=== PATIENT | female | born 1980 | race Caucasian/White ===

== ENCOUNTER 2021-11-11 21:45 | Emergency (ER) | payer OTHER ==
--- NOTE | 2021-11-11 21:56 | ERPHSYRPT ---
- History of Present Illness Time Seen by Provider: 11/11/21 21:54 Exam Limitations: no limitations Physician History: The patient is a 41-year-old female presents with a chief complaint of right flank pain. Onset reported was this morning. Her pain is described as a sharp pain that radiates to her right lower quadrant and is constant and moderate in severity. The pain is also associated with nausea but she denies vomiting. She also denies fever chills. She endorsed having diarrhea that started today as well in which she has had a total of 6 episodes of diarrhea was described as watery with no blood. She denies any recent sick contacts or any recent travel outside of the country as well as recent antibiotic use. She does not take anything for her symptoms prior to arrival. She denies any symptoms consistent with a UTI as well as vaginal bleeding or vaginal discharge. She denies history of kidney stones. Associated Symptoms: nausea, abdominal pain, other (Flank pain), No vomiting Allergies/Adverse Reactions: No Known Drug Allergies Allergy (Verified 11/11/21 22:06) Hx Tetanus, Diphtheria Vaccination/Date Given: No Hx Influenza Vaccination/Date Given: No Hx Pneumococcal Vaccination/Date Given: No - Review of Systems Constitutional: No No Symptoms, No Fever, No Chills Eyes: No Symptoms Ears, Nose, & Throat: No Symptoms Respiratory: No Symptoms Abdominal/Gastrointestinal: Abdominal Pain, Nausea, Diarrhea, No Vomiting, No Hematemesis, No Hematochezia Genitourinary Symptoms: No Symptoms, Other (Right flank pain), No Dysuria, No Frequency, No Hematuria, No Urgency, No Vaginal Bleeding, No Vaginal Discharge Musculoskeletal: No Symptoms Skin: No Symptoms Neurological: No Symptoms Psychological: No Symptoms Endocrine: No Symptoms Hematologic/Lymphatic: No Symptoms Immunological/Allergic: No Symptoms All Other Systems: Reviewed and Negative - Past Medical History Pertinent Past Medical History: Yes Neurological History: Other ENT History: No Pertinent History Cardiac History: No Pertinent History Respiratory History: Other Endocrine Medical History: No Pertinent History Musculoskeletal History: Degenerative Disk Disease GI Medical History: No Pertinent History History: No Pertinent History Psycho-Social History: No Pertinent History Female Reproductive Disorders: No Pertinent History Other Medical History: sciatic pain since , anxiety - Past Surgical History Past Surgical History: Yes Gastrointestinal: Cholecystectomy Female Surgical History: Tubal Ligation - Social History Smoking Status: Never smoker Exposure to second hand smoke: Yes Drug Use: none Patient Lives Alone: No - Nursing Vital Signs Nursing Vital Signs: Initial Vital Signs Temperature 97.6 F 11/11/21 21:58 Pulse Rate 79 11/11/21 21:58 Respiratory Rate 18 11/11/21 21:58 Blood Pressure 157/88 11/11/21 21:58 O2 Sat by Pulse Oximetry 97 11/11/21 21:58 Pain Scale Pain Intensity 7 - Physical Exam General Appearance: no apparent distress, mild distress, alert Eye Exam: No scleral icterus, No EOM palsy/anisocoria Ears, Nose, Throat Exam: normal ENT inspection Neck Exam: normal inspection Respiratory Exam: normal breath sounds, lungs clear, airway intact, No chest tenderness, No respiratory distress Cardiovascular Exam: regular rate/rhythm, normal heart sounds, normal peripheral pulses, capillary refill <2 sec, No murmur, No friction rub, No gallop, No edema Gastrointestinal/Abdomen Exam: soft, tenderness (Mild right lower quadrant tenderness with no rebound tenderness or guarding.), No pulsatile mass, No rebound Pelvic Exam: not done, deferred Rectal Exam: deferred Back Exam: normal inspection, No CVA tenderness, No vertebral tenderness Extremity Exam: normal inspection Neurologic Exam: alert, oriented x 3, cooperative Skin Exam: normal color, warm, dry, No rash, No petechiae, No jaundice SpO2 Interpretation: normal O2 Delivery: Room Air - Course Nursing assessment & vital signs reviewed: Yes - CT Exams Abdomen/Pelvis CT Interpretation: Tele-radiologist Report, Other (CT abdomen pelvis shows 3.6 mm distal right ureteral stone with trace right hydronephrosis.) Ordered Tests: Active Orders 24 hr Category Date Time Status IV Insertion STAT Care 11/11/21 21:55 Completed ABDOMEN AND PELVIS W/0 CONTRAS [CT] Stat Exams 11/11/21 22:18 Taken BMP Stat Lab 11/11/21 22:29 Completed CBC W DIFF Stat Lab 11/11/21 22:29 Completed HCG,QUALITATIVE URINE Stat Lab 11/11/21 22:20 Completed UA W/RFX UR CULTURE Stat Lab 11/11/21 22:20 Completed Medication Summary Discontinued Medications Generic Name Dose Route Start Last Admin Trade Name Freq PRN Reason Stop Dose Admin Hydrocodone Bitart/Acetaminophen 2 tab 11/11/21 23:04 11/11/21 23:15 Hydrocodone/Apap 5/325 Mg Tablet PO 11/11/21 23:05 2 tab STAT ONE Administration Hydrocodone Bitart/Acetaminophen Confirm 11/11/21 23:14 Hydrocodone/Apap 5/325 Mg Tablet Administered 11/11/21 23:15 Dose 2 tab .ROUTE .STK-MED ONE Hydrocodone Bitart/Acetaminophen Confirm 11/11/21 23:45 Hydrocodone/Apap 5/325 Mg Tablet Administered 11/11/21 23:46 Dose 2 tab .ROUTE .STK-MED ONE Hydrocodone Bitart/Acetaminophen 2 tab 11/11/21 23:47 11/11/21 23:48 Hydrocodone/Apap 5/325 Mg Tablet PO 11/11/21 23:48 2 tab STAT ONE Administration Hydromorphone HCl 0.5 mg 11/11/21 23:03 11/11/21 23:15 Hydromorphone 1 Mg/1ml Inj 1 Mg/Ml Syringe IV 11/11/21 23:04 0.5 mg STAT ONE Administration Hydromorphone HCl Confirm 11/11/21 23:14 Hydromorphone 1 Mg/1ml Inj 1 Mg/Ml Syringe Administered 11/11/21 23:15 Dose 1 mg .ROUTE .STK-MED ONE Hydromorphone HCl Confirm 11/11/21 23:46 Hydromorphone 1 Mg/1ml Inj 1 Mg/Ml Syringe Administered 11/11/21 23:47 Dose 1 mg .ROUTE .STK-MED ONE Hydromorphone HCl 0.5 mg 11/11/21 23:47 11/11/21 23:48 Hydromorphone 1 Mg/1ml Inj 1 Mg/Ml Syringe IV 11/11/21 23:48 0.5 mg STAT ONE Administration Sodium Chloride 1,000 mls @ 999 mls/hr 11/11/21 22:18 11/11/21 23:25 Sodium Chloride 0.9% 1000 Ml IV 11/11/21 23:18 Infused .Q1H1M STA Infusion Sodium Chloride Confirm 11/11/21 22:20 Sodium Chloride 0.9% 1000 Ml Administered 11/11/21 22:21 Dose 1,000 mls @ ud .ROUTE .STK-MED ONE Ketorolac Tromethamine 15 mg 11/11/21 22:17 11/11/21 22:22 Ketorolac Tromethamine 30 Mg/Ml Inj IV 11/11/21 22:18 15 mg STAT ONE Administration Ketorolac Tromethamine Confirm 11/11/21 22:20 Ketorolac Tromethamine 30 Mg/Ml Inj Administered 11/11/21 22:21 Dose 30 mg .ROUTE .STK-MED ONE Ondansetron HCl 4 mg 11/11/21 22:17 11/11/21 22:21 Ondansetron Hcl 4 Mg/2 Ml Vial IV 11/11/21 22:18 4 mg STAT ONE Administration Ondansetron HCl Confirm 11/11/21 22:20 Ondansetron Hcl 4 Mg/2 Ml Vial Administered 11/11/21 22:21 Dose 4 mg .ROUTE .STK-MED ONE Lab/Rad Data: Laboratory Result Diagrams 11/11/21 22:29 11/11/21 22:29 Laboratory Results 11/11/21 11/11/21 11/11/21 Range/Units 22:29 22:29 22:20 WBC 10.6 H (4.0-10.5) K/mm3 RBC 4.41 (4.1-5.4) M/mm3 Hgb 14.0 (12.0-16.0) gm/dl Hct 40.3 (35-47) % MCV 91.4 (78-100) fl MCH 31.7 (26-32) pg MCHC 34.7 (32-36) g/dl RDW 12.9 (11.5-14.0) % Plt Count 274 (150-450) K/mm3 MPV 9.5 (7.5-11.0) fl Gran % 61.6 (36.0-66.0) % Eos # (Auto) 0.22 (0-0.5) Absolute Lymphs (auto) 2.95 (1.0-4.6) Absolute Monos (auto) 0.86 (0.0-1.3) Lymphocytes % 27.9 (24.0-44.0) % Monocytes % 8.1 (0.0-12.0) % Eosinophils % 2.1 (0.00-5.0) % Basophils % 0.3 (0.0-0.4) % Absolute Granulocytes 6.52 (1.4-6.9) Basophils # 0.03 (0-0.4) Sodium 139 (137-145) mmol/L Potassium 3.8 (3.5-5.1) mmol/L Chloride 105 (98-107) mmol/L Carbon Dioxide 25 (22-30) mmol/L Anion Gap 12.9 (5-15) MEQ/L BUN 14 (7-17) mg/dL Creatinine 0.93 (0.52-1.04) mg/dL Estimated GFR > 60.0 ML/MIN Glucose 110 H (74-106) mg/dL Calcium 9.5 (8.4-10.2) mg/dL Urine Color (YELLOW) Urine Appearance (CLEAR) Urine pH (5-6) Ur Specific [place] (1.005-1.025) Urine Protein (Negative) Urine Ketones (NEGATIVE) Urine Blood (0-5) Luiz/ul Urine Nitrite (NEGATIVE) Urine Bilirubin (NEGATIVE) Urine Urobilinogen (0-1) mg/dL Ur Leukocyte Esterase (NEGATIVE) Urine WBC (Auto) (0-5) /HPF Urine RBC (Auto) (0-2) /HPF U Epithel Cells (Auto) (FEW) /HPF Urine Bacteria (Auto) (NEGATIVE) /HPF Urine Culture Reflexed (NO) Urine Glucose (NEGATIVE) mg/dL Urine HCG, Qual NEGATIVE (Negative) 11/11/21 Range/Units 22:20 WBC (4.0-10.5) K/mm3 RBC (4.1-5.4) M/mm3 Hgb (12.0-16.0) gm/dl Hct (35-47) % MCV (78-100) fl MCH (26-32) pg MCHC (32-36) g/dl RDW (11.5-14.0) % Plt Count (150-450) K/mm3 MPV (7.5-11.0) fl Gran % (36.0-66.0) % Eos # (Auto) (0-0.5) Absolute Lymphs (auto) (1.0-4.6) Absolute Monos (auto) (0.0-1.3) Lymphocytes % (24.0-44.0) % Monocytes % (0.0-12.0) % Eosinophils % (0.00-5.0) % Basophils % (0.0-0.4) % Absolute Granulocytes (1.4-6.9) Basophils # (0-0.4) Sodium (137-145) mmol/L Potassium (3.5-5.1) mmol/L Chloride (98-107) mmol/L Carbon Dioxide (22-30) mmol/L Anion Gap (5-15) MEQ/L BUN (7-17) mg/dL Creatinine (0.52-1.04) mg/dL Estimated GFR ML/MIN Glucose (74-106) mg/dL Calcium (8.4-10.2) mg/dL Urine Color YELLOW (YELLOW) Urine Appearance CLEAR (CLEAR) Urine pH 7.0 (5-6) Ur Specific [place] 1.013 (1.005-1.025) Urine Protein NEGATIVE (Negative) Urine Ketones NEGATIVE (NEGATIVE) Urine Blood MODERATE (0-5) Luiz/ul Urine Nitrite NEGATIVE (NEGATIVE) Urine Bilirubin NEGATIVE (NEGATIVE) Urine Urobilinogen 2 (0-1) mg/dL Ur Leukocyte Esterase NEGATIVE (NEGATIVE) Urine WBC (Auto) NONE (0-5) /HPF Urine RBC (Auto) 51-100 (0-2) /HPF U Epithel Cells (Auto) RARE (FEW) /HPF Urine Bacteria (Auto) NONE (NEGATIVE) /HPF Urine Culture Reflexed NO (NO) Urine Glucose NEGATIVE (NEGATIVE) mg/dL Urine HCG, Qual (Negative) - Progress Progress: improved Progress Note: 11/11/21 23:01 CT abdomen pelvis without contrast reviewed by me and it appears the patient has evidence of an obstructing kidney stone in the right UVJ with evidence of mild to moderate hydronephrosis. Currently waiting formal radiology review. 11/11/21 23:04 The patient was reassessed to find that she was still in a lot of pain. Have ordered 1/2 mg of Dilaudid and 2 Monroe's to be administered. 11/11/21 23:48 The patient's pain is a 4 out of 10. Have ordered 1/2 mg of Dilaudid to be administered totaling 1 mg since she has been in emergency department. The patient's nurse also did not administer the 2 Monroe that were originally ordered and thought they were to Monroe for her to go home with. She asked me to reorder this to be given in the emergency department and this has been ordered as such. The patient states that her pharmacy is not open tonight so I instructed her to take the 2 Monroe 6 hours after she receives her Monroe in the emergency department tonight if needed and in the meantime to take the Aleve that she has at home until she get her Toradol filled. She will be discharged home in ED return precautions for renal colic were given. Specifically, if her pain cannot be controlled with the medications provided to her and/or if she develops any fever, specifically an oral temperature of 100.4 Fahrenheit or greater or chills. She has called her who is come to the ER to provide the patient transportation home since she has received IV and oral opiates. 11/12/21 00:05 The nurse had discharged the patient before I could provide her with her pres criptions and updated discharged instructions. The patient also was discharged before her full observation period by the nurse after receiving Dilaudid without my knowledge. She reportedly was not hypoxic and able to walk out on her own without assistance. I had the nurse call her back to fern picker her prescription since I was unable to send her Monroe electronically to her pharmacy. Counseled pt/family regarding: lab results, diagnosis, need for follow-up, rad results - Departure Departure Disposition: Home Clinical Impression: Hydronephrosis with renal and ureteral calculous obstruction Condition: Good Critical Care Time: No Referrals: [facility] [COURTESY STAFF] - Follow up/PCP as directed Instructions: Kidney Stones (DC) Additional Instructions: Please return to the emergency department if you develop a fever, specifically an oral temperature of 100.4 Fahrenheit or greater or chills. Also please return to the emergency department if your pain cannot be controlled with the medications provided to you. Please take Aleve every 6-8 hours as needed for pain until you get your naproxen filled from your pharmacy tomorrow morning. Want to fill your Toradol there is no need to take any additional Aleve, ibuprofen, Motrin, naproxen or Advil. Please take 1-2 of the Monroe tablets that were provided to you at the time of discharge 6 hours after your dose of Monroe that was given to you into the ER tonight. Please do not drive or operate heavy machinery or drink any alcohol while taking this medication. Prescriptions: Hydrocodone/APAP 5/325 [Monroe 5/325 mg] 1 - 2 tab PO Q6H PRN PRN #16 tablet MDD 8 PRN Reason: Pain Ondansetron ODT 4 MG [Zofran Odt 4 mg] 4 mg PO Q6H PRN PRN #30 tablet PRN Reason: Vomiting Naproxen 500 mg [Naprosyn 500 MG] 500 mg PO BID 5 Days #10 tablet
[2021-11-11] MEDS ORDERED: Zofran 4 MG/2 ML VIAL IV ONE (22:17)
[2021-11-11] MEDS ORDERED: TORAdol 30 mg Injection IV ONE (22:17)
[2021-11-11] MEDS ORDERED: Sodium Chloride 0.9% 1000 ML 1,000 ML IV STA (22:18)
[2021-11-11] MEDS ORDERED: TORAdol 30 mg Injection ONE (22:20)
[2021-11-11] MEDS ORDERED: Sodium Chloride 0.9% 1000 ML 1,000 ML ONE (22:20)
[2021-11-11] MEDS ORDERED: Zofran 4 MG/2 ML VIAL ONE (22:20)
[2021-11-11 22:33] LABS: Absolute Neutrophil Ct (ANC) 6.52 (1.4-6.9); Basophil (Absolute #) 0.03 (0-0.4); Eosinophil % 2.1 % (0.00-5.0); Eosinophil (Absolute #) 0.22 (0-0.5); Hematocrit 40.3 % (35-47); Lymphocyte (Absolute #) 2.95 (1.0-4.6); Lymphocytes % 27.9 % (24.0-44.0); Mean Cell Volume 91.4 fl (78-100); Mean Corpuscular Hemoglobin 31.7 pg (26-32); Mean Corpuscular Hgb Concent. 34.7 g/dl (32-36); Mean Platelet Volume 9.5 fl (7.5-11.0); Monocyte (Absolute #) 0.86 (0.0-1.3); Monocytes % 8.1 % (0.0-12.0); Neutrophil % 61.6 % (36.0-66.0); Platelet Count 274 K/mm3 (150-450); Red Blood Count 4.41 M/mm3 (4.1-5.4); Red Cell Distribution Width 12.9 % (11.5-14.0); White Blood Count 10.6 K/mm3 (4.0-10.5)
[2021-11-11 22:40] LABS: Appearance CLEAR (CLEAR); Bilirubin NEGATIVE (NEGATIVE); Blood MODERATE Ery/ul (0-5); Epithelial Cells RARE /HPF (FEW); Glucose NEGATIVE (NEGATIVE); Ketones NEGATIVE (NEGATIVE); Leukocyte Esterase NEGATIVE (NEGATIVE); Nitrite NEGATIVE (NEGATIVE); Protein,Urine Dip NEGATIVE (Negative); RBC 51-100 /HPF (0-2); Specific Gravity 1.013 (1.005-1.025); Urobilinogen 2 mg/dL (0-1)
[2021-11-11 22:46] LABS: ANION GAP 12.9 MEQ/L (5-15); BLOOD UREA NITROGEN 14 mg/dL (7-17); CHLORIDE 105 mmol/L (98-107); Calcium 9.5 mg/dL (8.4-10.2); Carbon Dioxide 25 mmol/L (22-30); Creatinine 1 0.93 mg/dL (0.52-1.04); EST GLOMERULAR FILTRATION RATE > 60.0 ML/MIN; Glucose 110 mg/dL (74-106); Potassium 3.8 mmol/L (3.5-5.1); SODIUM 139 mmol/L (137-145)
[2021-11-11] MEDS ORDERED: Hydromorphone 1 mg/ml Injection IV ONE ×2 (23:03→23:47)
[2021-11-11] MEDS ORDERED: NORCO 5/325 MG PO ONE ×2 (23:04→23:47)
[2021-11-11 23:13] VITALS: O2SAT 98
[2021-11-11] MEDS ORDERED: Hydromorphone 1 mg/ml Injection ONE ×2 (23:14→23:46)
[2021-11-11] MEDS ORDERED: NORCO 5/325 MG ONE ×2 (23:14→23:45)
[2021-11-12 00:05] VITALS: BP 150/82; PULSE 84
--- NOTE | 2021-11-12 08:48 | XRAY ---
Indication: Right abdomen/flank pain. Difficulty urinating. Nausea and diarrhea. Multiple contiguous axial images obtained through the abdomen and pelvis without contrast using renal stone protocol. Comparison: September 18, 2010. Lung bases clear. Heart is not enlarged. New 3-4 mm distal right ureter calculus approximately 1-2 cm proximal to the UVJ. Proximal right ureter is prominent up to 7-8mm along with mild hydronephrosis consistent with partial obstructive uropathy. No free fluid/air. Stomach is distended with food/fluid. Noncontrasted stomach and bowel loops appear nonobstructed. Normal appendix. Interval cholecystectomy. Remaining liver, pancreas, spleen, adrenal glands, kidneys, ureters, bladder, uterus, and aorta are unremarkable for noncontrast exam. Osseous structures intact with now L4-S1 degenerative disc disease. Also new L4-L5 spinous process fusion hardware. Impression: 1. New 3-4 mm distal right ureter calculus producing partial obstruction. 2. New L4-S1 and degenerative changes and L4-L5 fusion. Comment: Preliminary interpretation made by [facility]. No critical discrepancy.
== END 2021-11-11 23:56 | disposition home or self-care (01) ==
LOC: ED 21:45
DX: N13.2 Hydronephrosis with renal and ureteral calculous obstruction (principal); R10.31 Right lower quadrant pain; R11.0 Nausea; R19.7 Diarrhea, unspecified; Z79.891 Long term (current) use of opiate analgesic
CPT/HCPCS: 36000; 36415; 74176; 80048; 81001; 84703; 85025; 96360; 96374; 96375; 96376; 99284; J1170; J1885; J2405; A9270-GY